=== PATIENT | female | born 1940 | race Caucasian/White ===

== ENCOUNTER → 2018-04-05 | Outpatient (CLI) | payer MEDICARE, MEDICAID ==
[~2018-04-05] VITALS: Ht 165.1 cm; Wt 123.0 kg
[~2018-04-05] MED LIST: ADV500 IH; FURO40 PO; GABA-531 PO; GLIP5 PO; INSLAN SQ; LIDOCAINE 2% 5 ML JELLY TP ONE; LOSA50TA64 PO; METO50 PO; RIVA20TA PO; SIMV-260 PO; TIOT185 IH
[2018-04-05 11:54] VITALS: BP 151/90
== END | disposition home or self-care (01) ==
LOC: HBOWC 10:46
PROVIDERS: ATTEND Emergency Medicine
DX: E11.622 Type 2 diabetes mellitus with other skin ulcer (principal); I83.028 Varicose veins of left lower extremity with ulcer other part of lower leg; L97.822 Non-pressure chronic ulcer of other part of left lower leg with fat layer exposed; I83.891 Varicose veins of right lower extremity with other complications; I87.2 Venous insufficiency (chronic) (peripheral); I82.409 Acute embolism and thrombosis of unspecified deep veins of unspecified lower extremity; I10 Essential (primary) hypertension; I26.99 Other pulmonary embolism without acute cor pulmonale; J44.9 Chronic obstructive pulmonary disease, unspecified; E66.9 Obesity, unspecified; Z87.891 Personal history of nicotine dependence; Z79.4 Long term (current) use of insulin; Z79.01 Long term (current) use of anticoagulants
CPT/HCPCS: 11042; 11045; G0463

== ENCOUNTER → 2018-04-12 | Outpatient (CLI) | payer MEDICARE, MEDICAID ==
[~2018-04-12] MED LIST changes: -LIDOCAINE 2% 5 ML JELLY TP ONE
[2018-04-12 11:22] VITALS: BP 142/77
== END | disposition home or self-care (01) ==
LOC: HBOWC 10:49
PROVIDERS: ATTEND Emergency Medicine
DX: E11.622 Type 2 diabetes mellitus with other skin ulcer (principal); I83.028 Varicose veins of left lower extremity with ulcer other part of lower leg; L97.821 Non-pressure chronic ulcer of other part of left lower leg limited to breakdown of skin; I87.2 Venous insufficiency (chronic) (peripheral); I83.891 Varicose veins of right lower extremity with other complications; I10 Essential (primary) hypertension; J44.9 Chronic obstructive pulmonary disease, unspecified; E66.9 Obesity, unspecified; Z79.4 Long term (current) use of insulin; Z86.718 Personal history of other venous thrombosis and embolism; Z87.891 Personal history of nicotine dependence; Z79.01 Long term (current) use of anticoagulants; Z86.711 Personal history of pulmonary embolism

== ENCOUNTER → 2019-02-28 | Outpatient (CLI) | payer MEDICARE, MEDICAID | END | disposition home or self-care (01) | LOC: HBOWC 09:38 | PROVIDERS: ATTEND Emergency Medicine | DX: L03.116 Cellulitis of left lower limb (principal); E78.5 Hyperlipidemia, unspecified; G47.30 Sleep apnea, unspecified; I10 Essential (primary) hypertension; I89.0 Lymphedema, not elsewhere classified; I87.2 Venous insufficiency (chronic) (peripheral); J44.9 Chronic obstructive pulmonary disease, unspecified; M10.9 Gout, unspecified; I26.99 Other pulmonary embolism without acute cor pulmonale; E66.9 Obesity, unspecified; I11.0 Hypertensive heart disease with heart failure; I50.9 Heart failure, unspecified; Z86.73 Personal history of transient ischemic attack (TIA), and cerebral infarction without residual deficits; Z87.891 Personal history of nicotine dependence ==